=== PATIENT | female | born 1945 | race American Indian/Alaskan Native ===

== ENCOUNTER 2019-09-16 15:51 | Observation (INO) | payer MEDICARE ==
--- NOTE | 2019-09-16 16:22 | Emergency Department Report ---
ED Neuro Deficit HPI - General Stated Complaint: SYNCOPAL EPISODE Time Seen by Provider: 09/16/19 16:10 - Related Data Allergies/Adverse Reactions: Allergies Allergy/AdvReac Type Severity Reaction Status Date / Time Unable to Assess Allergy Unverified 09/16/19 15:55 ED Review of Systems ROS: Stated complaint: SYNCOPAL EPISODE Other details as noted in HPI Critical care attestation.: If time is entered above; I have spent that time in minutes in the direct care of this critically ill patient, excluding procedure time. ED Disposition Condition: Stable Referrals: TANIYA WELLER MD [Other] - 3-5 Days
--- NOTE | 2019-09-16 16:27 | Cat Scan Report ---
CT HEAD WITHOUT CONTRAST INDICATION / CLINICAL INFORMATION: MAIN: neuro deficits <6hrs or sx present upon awakening: CODE STR FREDDY!!!. TECHNIQUE: Axial imaging performed from the skull apex through the skull base without the use of cont rast. Sagittal and coronal reformatted images. All CT scans at this location are performed using CT dose reduction for ALARA by means of automated exposure control. COMPARISON: None available. FINDINGS: CEREBRAL PARENCHYMA: No significant abnormality. No acute territorial infarct. Mild nonspecific chron ic periventricular white matter changes are noted. HEMORRHAGE: None. EXTRA-AXIAL SPACES: Normal in size and morphology for the patient's age. VENTRICULAR SYSTEM: The lateral ventricles appear prominent bilaterally. This could represent mild hy drocephalus or central volume loss. MIDLINE SHIFT OR HERNIATION: None. CEREBELLUM / BRAINSTEM: No significant abnormality. CALVARIUM: No significant abnormality. ORBITS: Normal as visualized. PARANASAL SINUSES / MASTOID AIR CELLS: Normal as visualized. SOFT TISSUES of HEAD: No significant abnormality. ADDITIONAL FINDINGS: None. IMPRESSION: No acute intracranial abnormality. The ventricles appear mildly dilated. Normal pressure hydrocephalu s Please correlate with the patient's clinical presentation. Signer Name: Joss Gomez Jr, MD Signed: 09/16/2019 4:22 PM Workstation Name: [id number]
[2019-09-16 18:18] LABS: Basophils % (Auto) 0.5 % (0.0-1.8); Eosinophils % (Auto) 0.2 % (0.0-4.3); Hematocrit 39.9 % (30.3-42.9); Hemoglobin 13.3 gm/dl (10.1-14.3); Lymphocytes # (Auto) 1.2 K/mm3 (1.2-5.4); Lymphocytes % (Auto) 12.6 % (13.4-35.0); Mean Corpuscular HGB Conc 34 % (30-34); Mean Corpuscular Volume 90 fl (79-97); Monocytes # (Auto) 0.3 K/mm3 (0.0-0.8); Monocytes % (Auto) 2.9 % (0.0-7.3); Platelet Count 286 K/mm3 (140-440); Red Blood Count 4.44 M/mm3 (3.65-5.03); Red Cell Distribution Width 13.8 % (13.2-15.2)
[2019-09-16 18:27] LABS: INR 0.92 (0.87-1.13)
[2019-09-16 18:38] LABS: BUN/Creatinine Ratio 20; Blood Urea Nitrogen 14 mg/dL (7-17); Calcium 9.1 mg/dL (8.4-10.2); Hemolysis Index 66
[2019-09-16 18:41] LABS: Alanine Aminotransferase 12 units/L (7-56); Albumin 3.8 g/dL (3.9-5)
[2019-09-16 18:42] LABS: Bilirubin,Direct < 0.2 mg/dL (0-0.2)
[2019-09-16 19:39] LABS: Partial Thromboplastin Time 20.4 Sec. (24.2-36.6)
--- NOTE | 2019-09-16 19:59 | Emergency Department Report ---
ED General Adult HPI - General Chief complaint: Neuro Symptoms/Deficit Stated complaint: SYNCOPAL EPISODE Time Seen by Provider: 09/16/19 16:10 Source: EMS Mode of arrival: Stretcher Limitations: Altered Mental Status - History of Present Illness Initial comments: The patient presents to the emergency Department from home for syncopal episode. Patient has a baseline history of dementia and is not very responsive to us. The patient's niece was present at bedside states her is at her baseline. patient is not able to add to history -: Sudden Severity scale (0 -10): 0 Consistency: now resolved Improves with: none Worsens with: none Associated Symptoms: denies other symptoms Treatments Prior to Arrival: none - Related Data Allergies Allergy/AdvReac Type Severity Reaction Status Date / Time shellfish derived Allergy Unknown Verified 09/16/19 18:32 ED Review of Systems ROS: Stated complaint: SYNCOPAL EPISODE Other details as noted in HPI Comment: All other systems reviewed and negative Constitutional: denies: chills, fever Eyes: denies: eye pain, eye discharge, vision change ENT: denies: ear pain, throat pain Respiratory: denies: cough, shortness of breath, wheezing Cardiovascular: denies: chest pain, palpitations Endocrine: no symptoms reported Gastrointestinal: denies: abdominal pain, nausea, diarrhea Genitourinary: denies: urgency, dysuria, discharge Musculoskeletal: denies: back pain, joint swelling, arthralgia Skin: denies: rash, lesions Neurological: denies: headache, weakness, paresthesias Psychiatric: denies: anxiety, depression Hematological/Lymphatic: denies: easy bleeding, easy bruising ED Past Medical Hx - Past Medical History Hx Diabetes: Yes Hx Dementia: Yes - Surgical History Past Surgical History?: No - Social History Smoking Status: Never Smoker Substance Use Type: None ED Physical Exam - General Limitations: Altered Mental Status General appearance: alert, in no apparent distress, other (demented) - Head Head exam: Present: atraumatic, normocephalic - Eye Eye exam: Present: normal appearance - ENT ENT exam: Present: mucous membranes moist - Neck Neck exam: Present: normal inspection - Respiratory Respiratory exam: Present: normal lung sounds bilaterally. Absent: respiratory distress - Cardiovascular Cardiovascular Exam: Present: regular rate, normal rhythm. Absent: systolic murmur, diastolic murmur, rubs, gallop - GI/Abdominal GI/Abdominal exam: Present: soft, normal bowel sounds. Absent: distended, tenderness - Extremities Exam Extremities exam: Present: normal inspection - Back Exam Back exam: Present: normal inspection - Neurological Exam Neurological exam: Present: alert, oriented X3, CN II-XII intact. Absent: motor sensory deficit - Psychiatric Psychiatric exam: Present: normal affect, normal mood - Skin Skin exam: Present: warm, dry, intact, normal color. Absent: rash ED Course Vital Signs 09/16/19 16:57 O2 Sat by Pulse 100 Oximetry ED Medical Decision Making - Lab Data Result diagrams: 09/16/19 18:05 09/16/19 18:05 Lab Results 09/16/19 09/16/19 09/16/19 Range/Units 18:05 18:05 18:05 WBC 9.5 (4.5-11.0) K/mm3 RBC 4.44 (3.65-5.03) M/mm3 Hgb 13.3 (10.1-14.3) gm/dl Hct 39.9 (30.3-42.9) % MCV 90 (79-97) fl MCH 30 (28-32) pg MCHC 34 (30-34) % RDW 13.8 (13.2-15.2) % Plt Count 286 (140-440) K/mm3 Lymph % (Auto) 12.6 L (13.4-35.0) % [place] % (Auto) 2.9 (0.0-7.3) % Eos % (Auto) 0.2 (0.0-4.3) % Baso % (Auto) 0.5 (0.0-1.8) % Lymph # 1.2 (1.2-5.4) K/mm3 [place] # 0.3 (0.0-0.8) K/mm3 Eos # 0.0 (0.0-0.4) K/mm3 Baso # 0.0 (0.0-0.1) K/mm3 Seg Neutrophils % 83.8 H (40.0-70.0) % Seg Neutrophils # 7.9 H (1.8-7.7) K/mm3 PT 12.3 (12.2-14.9) Sec. INR 0.92 (0.87-1.13) APTT 20.4 L (24.2-36.6) Sec. Thrombin Time (15.1-19.6) Sec. Sodium 139 (137-145) mmol/L Potassium 4.0 (3.6-5.0) mmol/L Chloride 103.1 (98-107) mmol/L Carbon Dioxide 22 (22-30) mmol/L Anion Gap 18 mmol/L BUN 14 (7-17) mg/dL Creatinine 0.7 (0.7-1.2) mg/dL Estimated GFR > 60 ml/min BUN/Creatinine Ratio 20 % Glucose 212 H (65-100) mg/dL Calcium 9.1 (8.4-10.2) mg/dL Total Bilirubin (0.1-1.2) mg/dL Direct Bilirubin (0-0.2) mg/dL Indirect Bilirubin mg/dL AST (5-40) units/L ALT (7-56) units/L Alkaline Phosphatase (35-129) units/L Troponin T < 0.010 (0.00-0.029) ng/mL Total Protein (6.3-8.2) g/dL Albumin (3.9-5) g/dL Albumin/Globulin Ratio % 09/16/19 09/16/19 Range/Units 18:05 18:05 WBC (4.5-11.0) K/mm3 RBC (3.65-5.03) M/mm3 Hgb (10.1-14.3) gm/dl Hct (30.3-42.9) % MCV (79-97) fl MCH (28-32) pg MCHC (30-34) % RDW (13.2-15.2) % Plt Count (140-440) K/mm3 Lymph % (Auto) (13.4-35.0) % [place] % (Auto) (0.0-7.3) % Eos % (Auto) (0.0-4.3) % Baso % (Auto) (0.0-1.8) % Lymph # (1.2-5.4) K/mm3 [place] # (0.0-0.8) K/mm3 Eos # (0.0-0.4) K/mm3 Baso # (0.0-0.1) K/mm3 Seg Neutrophils % (40.0-70.0) % Seg Neutrophils # (1.8-7.7) K/mm3 PT (12.2-14.9) Sec. INR (0.87-1.13) APTT (24.2-36.6) Sec. Thrombin Time 15.4 (15.1-19.6) Sec. Sodium (137-145) mmol/L Potassium (3.6-5.0) mmol/L Chloride (98-107) mmol/L Carbon Dioxide (22-30) mmol/L Anion Gap mmol/L BUN (7-17) mg/dL Creatinine (0.7-1.2) mg/dL Estimated GFR ml/min BUN/Creatinine Ratio % Glucose (65-100) mg/dL Calcium (8.4-10.2) mg/dL Total Bilirubin 0.20 (0.1-1.2) mg/dL Direct Bilirubin < 0.2 (0-0.2) mg/dL Indirect Bilirubin 0.0 mg/dL AST 18 (5-40) units/L ALT 12 (7-56) units/L Alkaline Phosphatase 63 (35-129) units/L Troponin T (0.00-0.029) ng/mL Total Protein 6.5 (6.3-8.2) g/dL Albumin 3.8 L (3.9-5) g/dL Albumin/Globulin Ratio 1.4 % - Medical Decision Making Discussed results with the patient's son urinalysis results and chest xray will be followed by admitting team Critical care attestation.: If time is entered above; I have spent that time in minutes in the direct care of this critically ill patient, excluding procedure time. ED Disposition Clinical Impression: Syncope Disposition: OP ADMIT IP TO THIS HOSP Is pt being admited?: Yes Does the pt Need Aspirin: Yes Condition: Fair Instructions: Syncope (ED) Referrals: TANIYA WELLER MD [Other] - 3-5 Days
[2019-09-16] MEDS ORDERED: ONDANSETRON 4 MG/2 ML INJ IV PRN (20:10)
[2019-09-16] MEDS ORDERED: DEXTROSE 50% IN WATER (25GM) 50 ML SYRINGE IV PRN (20:10)
[2019-09-16] MEDS ORDERED: ACETAMINOPHEN 325 MG TAB PO PRN (20:10)
--- NOTE | 2019-09-16 22:20 | History and Physical Report ---
History of Present Illness Date of examination: 09/16/19 Date of admission: 09/16/2019 Chief complaint: Syncope History of present illness: 74-year-old -[place]ian female with history of insulin-dependent diabetes, dementia who presents to [facility] via EMS with complaints of syncopal episodex1. Baseline patient has dementia and for the most part is nonverbal. Her son and niece are present at the bedside and have assisted in providing history. According to son approximately 3:30 PM patient had one episode of large emesis. She immediately came unresponsive with her eyes rolling to the back of her head. Patient remained unresponsive for approximately 3-5 minutes. EMS was called and patient was transferred to our facility for further evaluation and treat ment. Patient's PCP is located at [facility]. Her last well visit appointment was in May of this year. Pt was seen and treated at urgent care two weeks ago for UTI. Pt is incontinent of bowel and bladder and wears depends diapers. Past History Past Medical History: diabetes, other (dementia) Past Surgical History: No surgical history Social history: lives with family (with son and niece) Family history: no significant family history Medications and Allergies Allergies Allergy/AdvReac Type Severity Reaction Status Date / Time shellfish derived Allergy Unknown Verified 09/16/19 18:32 Home Medications Medication Instructions Recorded Confirmed Last Taken Type Humalog Mix 75-25 Vial See Protocol SC 09/16/19 09/15/19 History Active Meds: Active Medications Acetaminophen (Tylenol) 650 mg PO Q4H PRN PRN Reason: Pain MILD(1-3)/Fever >100.5/RODRIGUEZ Atorvastatin Calcium (Lipitor) 40 mg PO QHS JOSE MIGUEL Dextrose (D50w (25gm) Syringe) 50 ml IV Q30MIN PRN; Protocol PRN Reason: Hypoglycemia Docusate Sodium (Colace) 100 mg PO BID JOSE MIGUEL Enoxaparin Sodium (Enoxaparin) 40 mg SUB-Q QDAY JOSE MIGUEL Insulin Human Lispro (Humalog) 0 unit SUB-Q ACHS JOSE MIGUEL; Protocol Ondansetron HCl (Zofran) 4 mg IV Q6H PRN PRN Reason: Nausea And Vomiting Sodium Chloride (Sodium Chloride Flush Syringe 10 Ml) 10 ml IV BID JOSE MIGUEL Sodium Chloride (Sodium Chloride Flush Syringe 10 Ml) 10 ml IV PRN PRN PRN Reason: LINE FLUSH Review of Systems ROS unobtainable: due to mental status Exam - Physical Exam Narrative exam: General appearance: Present: No acute distress, awake, well-developed, well- nourished unable to assess orientation, at baseline patient has dementia, older adult female - EENT Eyes: Present: PERRL, EOM intact ENT: hearing intact - Neck Neck: Present: supple, normal ROM - Respiratory Respiratory effort: Non-labored Respiratory: bilateral: CTA - Cardiovascular Heart rate:81 (bpm) Rhythm:SR Heart Sounds: Present: S1, S2. - Extremities Extremities: no ischemia, pulses intact - Peripheral Assessment Peripheral Pulses: within normal limits - Abdominal General gastrointestinal: soft, non-tender, normal bowel sounds, - Integumentary Integumentary: Present: warm, dry - Musculoskeletal Musculoskeletal: generalized weakness, able to move all extremities -Neurological Neurological: CN II-XII grossly intact - Psychiatric Psychiatric: Able to follow commands at times, calm - Constitutional Vitals: Temp Pulse Resp BP Pulse Ox 81 16 151/124 100 09/16/19 19:00 09/16/19 19:00 09/16/19 19:00 09/16/19 17:00 Results - Labs CBC & Chem 7: 09/16/19 18:05 09/16/19 18:05 Labs: Laboratory Last Values WBC 9.5 K/mm3 (4.5-11.0) 09/16/19 18:05 RBC 4.44 M/mm3 (3.65-5.03) 09/16/19 18:05 Hgb 13.3 gm/dl (10.1-14.3) 09/16/19 18:05 Hct 39.9 % (30.3-42.9) 09/16/19 18:05 MCV 90 fl (79-97) 09/16/19 18:05 MCH 30 pg (28-32) 09/16/19 18:05 MCHC 34 % (30-34) 09/16/19 18:05 RDW 13.8 % (13.2-15.2) 09/16/19 18:05 Plt Count 286 K/mm3 (140-440) 09/16/19 18:05 Lymph % (Auto) 12.6 % (13.4-35.0) L 09/16/19 18:05 [place] % (Auto) 2.9 % (0.0-7.3) 09/16/19 18:05 Eos % (Auto) 0.2 % (0.0-4.3) 09/16/19 18:05 Baso % (Auto) 0.5 % (0.0-1.8) 09/16/19 18:05 Lymph # 1.2 K/mm3 (1.2-5.4) 09/16/19 18:05 [place] # 0.3 K/mm3 (0.0-0.8) 09/16/19 18:05 Eos # 0.0 K/mm3 (0.0-0.4) 09/16/19 18:05 Baso # 0.0 K/mm3 (0.0-0.1) 09/16/19 18:05 Seg Neutrophils % 83.8 % (40.0-70.0) H 09/16/19 18:05 Seg Neutrophils # 7.9 K/mm3 (1.8-7.7) H 09/16/19 18:05 PT 12.3 Sec. (12.2-14.9) 09/16/19 18:05 INR 0.92 (0.87-1.13) 09/16/19 18:05 APTT 20.4 Sec. (24.2-36.6) L 09/16/19 18:05 Thrombin Time 15.4 Sec. (15.1-19.6) 09/16/19 18:05 Sodium 139 mmol/L (137-145) 09/16/19 18:05 Potassium 4.0 mmol/L (3.6-5.0) 09/16/19 18:05 Chloride 103.1 mmol/L (98-107) 09/16/19 18:05 Carbon Dioxide 22 mmol/L (22-30) 09/16/19 18:05 Anion Gap 18 mmol/L 09/16/19 18:05 BUN 14 mg/dL (7-17) 09/16/19 18:05 Creatinine 0.7 mg/dL (0.7-1.2) 09/16/19 18:05 Estimated GFR > 60 ml/min 09/16/19 18:05 BUN/Creatinine Ratio 20 % 09/16/19 18:05 Glucose 212 mg/dL (65-100) H 09/16/19 18:05 Calcium 9.1 mg/dL (8.4-10.2) 09/16/19 18:05 Total Bilirubin 0.20 mg/dL (0.1-1.2) 09/16/19 18:05 Direct Bilirubin < 0.2 mg/dL (0-0.2) 09/16/19 18:05 Indirect Bilirubin 0.0 mg/dL 09/16/19 18:05 AST 18 units/L (5-40) 09/16/19 18:05 ALT 12 units/L (7-56) 09/16/19 18:05 Alkaline Phosphatase 63 units/L (35-129) 09/16/19 18:05 Troponin T < 0.010 ng/mL (0.00-0.029) 09/16/19 18:05 Total Protein 6.5 g/dL (6.3-8.2) 09/16/19 18:05 Albumin 3.8 g/dL (3.9-5) L 09/16/19 18:05 Albumin/Globulin Ratio 1.4 % 09/16/19 18:05 - Imaging and Cardiology Imaging and Cardiology: CT Head: FINDINGS: CEREBRAL PARENCHYMA: No significant abnormality. No acute territorial infarct. Mild nonspecific chronic periventricular white matter changes are noted. HEMORRHAGE: None. EXTRA-AXIAL SPACES: Normal in size and morphology for the patient's age. VENTRICULAR SYSTEM: The lateral ventricles appear prominent bilaterally. This could represent mild hydrocephalus or central volume loss. MIDLINE SHIFT OR HERNIATION: None. CEREBELLUM / BRAINSTEM: No significant abnormality. CALVARIUM: No significant abnormality. ORBITS: Normal as visualized. PARANASAL SINUSES / MASTOID AIR CELLS: Normal as visualized. SOFT TISSUES of HEAD: No significant abnormality. ADDITIONAL FINDINGS: None. IMPRESSION: No acute intracranial abnormality. The ventricles appear mildly dilated. Normal pressure hydrocephalus Please correlate with the patient's clinical presentation. CXR: Acute cardiopulmonary abnormalities Assessment and Plan Assessment and plan: 74-year-old -[place]ian female with history of insulin-dependent diabetes, dementia who presents to [facility] via EMS with complaints of syncopal episodex1. At the time of my examination in laying down in stretcher with her eyes closes. She opens eyes spontaneously does not follow command when asked to open eyes. She was able to follow command and squeezes my fingers and wiggle/move her lower extremities. Family remains present at bedside. Syncopal episode -CT Head showed No acute intracranial abnormality. The ventricles appear mildly dilated. Normal pressure hydrocephalus -CXR negative -Bilateral carotid Doppler, Echo pending -Neurology consulted -Neuro Checks -PT/OT eval pending -Lipid panel pending -Start ASA and statin Insulin-dependent -POC BG monitoring -SSI coverage prn -Hgb A1c pending Elevated BP -No hx of HTN -Continue to monitor BP -IV hydralazine when necessary -Hold off for now on starting on antihypertensive therapy Dementia -At baseline pt is able to follow some simple commands and recognize family -Continue supportive care Hx Recent UTI -Pt diagnosed with UTI and completed course of oral Abx -UA pending, if positive will order urine culture and start on Abx DVT PPX -On Lovenox Advance Directives: No VTE prophylaxis?: Chemical Contraindication Mechanical VTE Prophylaxis: Contraindicated Plan of care discussed with patient/family: Yes
[2019-09-16] MEDS ORDERED: hydrALAZINE 20 MG/1 ML INJ IV PRN (22:26)
[2019-09-16 22:37] LABS: Bilirubin,Urine NEG (Negative); Blood,Urine NEG (Negative); Color,Urine Yellow (Yellow); Mucus,Urine FEW /HPF; Protein,Urine <15 mg/dL mg/dL (Negative); RBC,Urine < 1.0 /HPF (0.0-6.0); Urobilinogen,Urine < 2.0 mg/dL (<2.0); WBC,Urine < 1.0 /HPF (0.0-6.0)
[2019-09-16] MEDS: DOCUSATE SODIUM 100 MG CAP PO SCH (23:48)
[2019-09-17] MEDS ORDERED: INSULIN LISPRO 100 UNIT/ML SUB-Q ONE (00:04)
[2019-09-17] MEDS: INSULIN LISPRO 100 UNIT/ML SUB-Q SCH ×3 (00:08→12:10)
--- NOTE | 2019-09-17 04:15 | XRay Report ---
CHEST 1 VIEW 09/16/2019 4:43 PM INDICATION / CLINICAL INFORMATION: syncope. COMPARISON: None available. FINDINGS: SUPPORT DEVICES: None. HEART / MEDIASTINUM: No significant abnormality. LUNGS / PLEURA: No significant pulmonary or pleural abnormality. No pneumothorax. ADDITIONAL FINDINGS: No significant additional findings. IMPRESSION: 1. No acute findings. Signer Name: Ernie Jean MD Signed: 09/17/2019 4:11 AM Workstation Name: [id number]
[2019-09-17 08:18] VITALS: BP 158/85
[2019-09-17 08:35] LABS: Basophils # (Auto) 0.1 K/mm3 (0.0-0.1); Basophils % (Auto) 0.7 % (0.0-1.8); Eosinophils % (Auto) 0.5 % (0.0-4.3); Hematocrit 38.5 % (30.3-42.9); Hemoglobin 12.7 gm/dl (10.1-14.3); Lymphocytes # (Auto) 2.3 K/mm3 (1.2-5.4); Lymphocytes % (Auto) 28.1 % (13.4-35.0); Mean Corpuscular HGB Conc 33 % (30-34); Mean Corpuscular Volume 89 fl (79-97); Monocytes # (Auto) 0.3 K/mm3 (0.0-0.8); Monocytes % (Auto) 3.9 % (0.0-7.3); Platelet Count 282 K/mm3 (140-440); Red Blood Count 4.34 M/mm3 (3.65-5.03); Red Cell Distribution Width 13.6 % (13.2-15.2)
[2019-09-17 08:51] LABS: BUN/Creatinine Ratio 20; Blood Urea Nitrogen 12 mg/dL (7-17); Calcium 9.5 mg/dL (8.4-10.2); Chol/HDL Ratio 4.04 %; HDL Cholesterol 68 mg/dL (40-59); Hemolysis Index 3; LDL Cholesterol,Direct 218 mg/dL (50-130)
[2019-09-17] MEDS ORDERED: ENOXAPARIN 40 MG/0.4 ML INJ SUB-Q SCH (10:00)
[2019-09-17] MEDS ORDERED: ASPIRIN 81 MG TAB CHEW PO SCH (10:00)
--- NOTE | 2019-09-17 11:34 | Vascular Lab Report ---
BILATERAL CAROTID DOPPLER ULTRASOUND INDICATION : syncope TECHNIQUE: Grayscale and color Doppler imaging performed through the neck. COMPARISON: None FINDINGS: Right: There is minimal partially calcified plaques are identified at the bifurcation. Peak systoli c velocity in the CCA is 105 cm/s with end-diastolic velocity of 5 cm/s. Peak systolic velocity in th e proximal ICA is 76 cm/s with end-diastolic velocity of 11 cm/s. ICA to CCA ratio is less than 2. Th ere is antegrade flow in the ECA and the vertebral artery. Left: There is moderate to severe irregular calcific plaques at the bifurcation. Peak systolic veloci ty in the CCA is 81 cm/s with end-diastolic velocity of 10 cm/s. Peak systolic velocity in the proxim al ICA is 190 cm/s with end-diastolic velocity of 18 cm/s. ICA to CCA ratio is less than 2. There is antegrade flow in the ECA and the vertebral artery. Elevated velocities are identified in the proxim al ECA measuring 224 cm/s. IMPRESSION: 50-79% stenosis is demonstrated in the proximal left ICA by Doppler velocities. 50-79% stenosis in the proximal left ECA. Less than 50% luminal narrowing throughout the right carotid system.. Signer Name: Joss Gomez Jr, MD Signed: 09/17/2019 11:29 AM Workstation Name: [id number]
[2019-09-17] MEDS: DOCUSATE SODIUM 100 MG CAP PO SCH (12:09)
--- NOTE | 2019-09-17 15:56 | Discharge Summary ---
Providers - Providers Date of Admission: 09/16/19 20:10 Date of discharge: 09/17/19 Attending physician: MIRIAM SILVA 09/16/19 20:10 Consult to Physician [CONS] Routine Comment: Consulting Provider: SCOTT RECINOS Physician Instructions: Reason For Exam: syncopal episode Occupational Therapy Evaluate and Treat [CONS] Routine Comment: Reason For Exam: Neuro deficits Physical Therapy Evaluation and Treat [CONS] Routine Comment: Reason For Exam: Neuro deficits Hospitalization Condition: Fair Hospital course: Patient is a 74-year-old -[place] female with history of insulin- dependent diabetes, dementia who [facility] via [facility] with complaints of syncopal episodex1. Baseline patient has dementia and for the most part is nonverbal. Her son and niece are present at the bedside and have assisted in providing history. According to son approximately 3:30 PM patient had one episode of large emesis. She immediately came unresponsive with her eyes rolling to the back of her head. Patient remained unresponsive for approximately 3-5 minutes. EMS was called and patient was transferred to our facility for further evaluation and treatment. Patient's PCP is located at [facility]. Her last well visit appointment was in May of this year. Pt was seen and treated at urgent care two weeks ago for UTI. Pt is incontinent of bowel and bladder and wears depends diapers. 74-year-old -[place] female with history of insulin-dependent diabetes, dementia who presents to [facility] via EMS with complaints of syncopal episodex1. At the time of my examination in laying down in stretcher with her eyes closes. She opens eyes spontaneously does not follow command when asked to open eyes. She was able to follow command and squeezes my fingers and wiggle/move her lower extremities. Family remains present at bedside. * CT Head IMPRESSION: No acute intracranial abnormality. The ventricles appear mildly dilated. Normal pressure hydrocephalus Please correlate with the patient's clinical presentation. * CXR: Acute cardiopulmonary abnormalities Discharge Diagnoses: Syncopal episode, most likely vasovagal -CT Head showed No acute intra-cranial abnormality. The ventricles appear mildly dilated. Normal pressure hydrocephalus -CXR negative -Bilateral carotid Doppler, Echo pending -Neurology consulted -Neuro Checks -PT/OT eval pending -Lipid panel pending -Start ASA and statin Normal pressure hydrocephalus -Outpatient NSY evaluation with Dr. Anish Amaro or Dr. Cely Denise Dyslipidemia, new diagnosis -statin and ASA Insulin-dependent DM -POC BG monitoring -SSI coverage prn -Hgb A1c 6.8, not bad Elevated BP -No hx of HTN -Continue to monitor BP -IV hydralazine when necessary -Hold off for now on starting on antihypertensive therapy Dementia -At baseline pt is able to follow some simple commands and recognize family -Continue supportive care Hx Recent UTI -Pt diagnosed with UTI and completed course of oral Abx -UA pending, if positive will order urine culture and start on Abx DVT PPX -On Lovenox Disposition: [id number]/TX-06 HOME [facility] Time spent for discharge: 33 minutes Core Measure Documentation - Palliative Care Palliative Care/ Comfort Measures: Not Applicable - Core Measures Any of the following diagnoses?: none - VTE Discharge Requirements Deep Vein Thrombosis/Pulmonary Embolism Present on Admission: No Has pt received <5 days of overlap therapy or INR<2.0: No Anticoagulant overlap therapy prescribed at discharge: No Contraindication No Overlap Therapy order at DC: Not Indicated Exam - Physical Exam Narrative exam: Gen: chronically disable appearing, thin frail, NAD, Awake, Alert, confused HEENT: NCAT, EOMI, PERRL, OP Clear Neck: supple, no adenopathy, no thyromegaly, no JVD CVS/Heart: RRR, normal S1S2, pulses present bilaterally Chest/Lungs: CTA B, Symmetrical chest expansion, good air entry bilaterally GI/Abdomen: soft, NTND, good bowel sounds, no guarding or rebound /Bladder: no suprapubic tenderness, no CVA or paraspinal tenderness Extermity/Skin: no c/c/e, no obvious rash MSK: spontaneous FROM x 4 Neuro: CN 2-12 grossly intact, doesn't follow commands Psych: calm but confused - Constitutional Vitals: Temp Pulse Resp BP Pulse Ox 98.3 F 85 18 158/85 98 09/17/19 08:13 09/17/19 08:13 09/17/19 09:26 09/17/19 08:13 09/17/19 08:25 Plan Activity: up only with assistance, fall precautions, other (no strenous activity) Diet: advance as tolerated Additional Instructions: See Dr. Jose Rafael Denise for Normal pressure Hydrocephalus Follow up with: TANIYA WELLER MD [Other] - 3-5 Days WADE GOINS MD [Staff Physician] - 7 Days Prescriptions: AtorvaSTATin [Lipitor] 40 mg PO QHS #30 tablet
--- NOTE | 2019-09-17 16:57 | Consultation ---
History of Present Illness Consult date: 09/17/19 Reason for Consult: Syncope Chief complaint: Syncope History of present illness: Patient is a 74 y/o woman w/ a h/o Dementia, DM. Patient [place] yesterday, when she suddenly began vomiting. Soon after vomiting, patient lost consciousness. She was not noted to be convulsing/shaking at time of LOC, and d id not bite her tongue. No loss of bowel/bladder control at time of LOC. It took patient about an hour to return to baseline of mental status. Patient reportedly had a similar episode after vomiting in the past. At baseline, she is mostly non-verbal, and needs assistance in all ADLs. She reportedly had a UTI 2 weeks ago which was treated. She was diagnosed with Alzheimer's disease in 2013. Past History Past Medical History: diabetes, other (dementia) Past Surgical History: No surgical history Social history: lives with family (with son and niece) Family history: no significant family history Medications and Allergies Allergies Allergy/AdvReac Type Severity Reaction Status Date / Time shellfish derived Allergy Unknown Verified 09/16/19 18:32 Home Medications Medication Instructions Recorded Confirmed Last Taken Type Aspirin [Aspirin BABY CHEW TAB] 81 mg PO QDAY #30 tab.chew 09/17/19 Unknown Rx AtorvaSTATin [Lipitor] 40 mg PO QHS #30 tablet 09/17/19 Unknown Rx Insulin Lispro Protamin/Lispro See Protocol SQ ACHS 09/17/19 09/17/19 09/16/19 History [HumaLOG Mix 75-25 Kwikpen] Active Meds: Active Medications Acetaminophen (Tylenol) 650 mg PO Q4H PRN PRN Reason: Pain MILD(1-3)/Fever >100.5/RODRIGUEZ Aspirin (Baby Aspirin) 81 mg PO QDAY [facility] Last Admin: 09/17/19 12:09 Dose: 81 mg Documented by: Atorvastatin Calcium (Lipitor) 40 mg PO QHS [facility] Last Admin: 09/16/19 23:48 Dose: Not Given Documented by: Dextrose (D50w (25gm) Syringe) 50 ml IV Q30MIN PRN; Protocol PRN Reason: Hypoglycemia Docusate Sodium (Colace) 100 mg PO BID [facility] Last Admin: 09/17/19 12:09 Dose: 100 mg Documented by: Enoxaparin Sodium (Enoxaparin) 40 mg SUB-Q QDAY [facility] Last Admin: 09/17/19 12:09 Dose: 40 mg Documented by: Hydralazine HCl (Apresoline) 10 mg IV Q4HR PRN PRN Reason: Blood Pressure Insulin Human Lispro (Humalog) 0 unit SUB-Q ACHS [facility]; Protocol Last Admin: 09/17/19 12:10 Dose: 2 unit Documented by: Ondansetron HCl (Zofran) 4 mg IV Q6H PRN PRN Reason: Nausea And Vomiting Sodium Chloride (Sodium Chloride Flush Syringe 10 Ml) 10 ml IV BID [facility] Last Admin: 09/17/19 12:11 Dose: 10 ml Documented by: Sodium Chloride (Sodium Chloride Flush Syringe 10 Ml) 10 ml IV PRN PRN PRN Reason: LINE FLUSH Review of Systems ROS unobtainable: due to mental status Physical Examination - Vital Signs Vital Signs: Vital Signs Pulse Resp 74 17 09/16/19 15:58 09/16/19 15:58 - Physical Exam Narrative exam: Patient is awake, only responds "yes" when her name is called. Does not follow any commands. PERRL, EOMI, VFF to threat, tongue midline, no facial weakness noted. No dysarthria or aphasia noted. moves all extremities spontaneously. 2+ reflexes throughout. Unable to assess HTS and FTN as she does not follow commands. W/d to pain in all extremities. - Constitutional General appearance: comfortable - EENT EENT: Present: ATNC, mucous membranes moist - Respiratory Respiratory: Present: lungs clear, normal breath sounds - Cardiovascular Cardiovascular: Present: regular rate, normal S1, normal S2 Extremities: Present: no clubbing, cyanosis, no inflammation - Gastrointestinal Gastrointestinal: Present: normoactive bowel sounds, soft, non-tender - Integumentary Integumentary: Present: normal - Musculoskeletal Musculoskeletal: Present: no fluid collection, no pain Results - Laboratory Findings CBC and BMP: 09/17/19 08:16 09/17/19 08:16 Abnormal Lab Findings: Abnormal Labs 09/16/19 09/16/19 09/16/19 18:05 18:05 18:05 Lymph % (Auto) 12.6 L Seg Neutrophils % 83.8 H Seg Neutrophils # 7.9 H APTT 20.4 L Creatinine Glucose 212 H POC Glucose Hemoglobin A1c Albumin Cholesterol LDL Cholesterol Direct HDL Cholesterol 09/16/19 09/16/19 09/16/19 18:05 18:05 23:53 Lymph % (Auto) Seg Neutrophils % Seg Neutrophils # APTT Creatinine Glucose POC Glucose 250 H Hemoglobin A1c 6.8 H Albumin 3.8 L Cholesterol LDL Cholesterol Direct HDL Cholesterol 09/17/19 09/17/19 09/17/19 08:16 08:49 11:54 Lymph % (Auto) Seg Neutrophils % Seg Neutrophils # APTT Creatinine 0.6 L Glucose 167 H POC Glucose 165 H 191 H Hemoglobin A1c Albumin Cholesterol 275 H LDL Cholesterol Direct 218 H HDL Cholesterol 68 H 09/17/19 15:29 Lymph % (Auto) Seg Neutrophils % Seg Neutrophils # APTT Creatinine Glucose POC Glucose 159 H Hemoglobin A1c Albumin Cholesterol LDL Cholesterol Direct HDL Cholesterol Assessment and Plan Patient is a 74 y/o woman w/ a h/o Dementia, DM, who p/w LOC. According to the patient's clinical findings, she has likely had syncope due to dehydration/orthostatic hypotension, as patient vomited prior to LOC. Plan: 1. Syncope: - Recommend checking orthostatic vital signs - CT head: likely Normal pressure hydrocephalus, Christian's Index 0.39. - Recommend for patient to follow up with neurology at [facility] for further evaluation of NPH, as family states she has seen Neurology at [facility] in the past as outpatient. - Cont. ASA, as CUS showed 50-79% stenosis in Lt. ICA. - Echo: Ef 50-55%, LA normal size. - Will sign off. Please call with any questions. Thank you for allowing me to take part in the care of this patient. Bernardino Sumner MD Neurology
== END 2019-09-17 17:30 | disposition home health service (06) ==
LOC: ED 15:51 → 4A 20:10
PROVIDERS: ADMIT Internal Medicine; ATTEND Internal Medicine
DX: R55 Syncope and collapse (principal); E78.5 Hyperlipidemia, unspecified; R03.0 Elevated blood-pressure reading, without diagnosis of hypertension; N39.0 Urinary tract infection, site not specified; F03.90 Unspecified dementia, unspecified severity, without behavioral disturbance, psychotic disturbance, mood disturbance, and anxiety; E11.9 Type 2 diabetes mellitus without complications; Z79.4 Long term (current) use of insulin; Z79.899 Other long term (current) drug therapy; Z91.013 Allergy to seafood
CPT/HCPCS: 36415; 70450; 71045; 80048; 80061; 80076; 81001; 82962; 83036; 84484; 85025; 85610; 85670; 85730; 93005; 93010; 93306; 93880; 96372; 97166; 99284; A9270; G0378; J1650; J1815